=== PATIENT | female | born 1970 | race African-American/Black ===

== ENCOUNTER 2016-12-07 23:05 | Emergency (ER) | payer MEDICAID ==
[~2016-12-07 23:05] MED LIST: DIPH25CA83; RISP1
== END 2016-12-07 23:10 | disposition left against medical advice (07) ==
LOC: ER 23:10
DX: Z53.21 Procedure and treatment not carried out due to patient leaving prior to being seen by health care provider (principal)

== ENCOUNTER 2016-12-12 02:28 | Emergency (ER) | payer MEDICAID ==
[~2016-12-12] VITALS: Ht 167.6 cm; Wt 54.0 kg
[2016-12-12 03:23] LABS: BASOPHILS % 3.1 % (0.0-2.0); EOSINOPHILS % 3.2 % (0.0-5.0); HEMATOCRIT. 29.8 % (36.0-48.0); HEMOGLOBIN. 9.5 g/dL (12.0-16.0); LYMPHOCYTES % 35.9 % (20.0-50.0); MEAN CORPUSCULAR HEMOGLOBIN 25.6 pg (28.0-32.0); MEAN CORPUSCULAR HGB CONC 31.8 g/dL (31.0-37.0); MEAN CORPUSCULAR VOLUME 80.4 fL (81.0-99.0); MEAN PLATELET VOLUME 7.6 fl (7.4-10.4); MONOCYTES % 6.1 % (2.0-8.0); NEUTROPHILS % 51.7 % (40.0-76.0); PLATELET 326 x1000/uL (130-400); RED CELL DISTRIBUTION WIDTH 16.5 % (11.6-14.6); WHITE BLOOD COUNT 6.3 x1000/uL (4.5-11.0)
[2016-12-12 03:38] LABS: ALANINE AMINOTRANSFERASE 34 IU/L (13-61); ALBUMIN 3.1 g/dL (3.4-5.0); ANION GAP 9; CALCIUM 8.7 mg/dL (8.5-10.1); CARBON DIOXIDE 33 mEq/L (21-32); CHLORIDE 105 mEq/L (98-107); INDEX HEMOLYSI 1 (1-3); INDEX ICTERIC 1 (1-4); INDEX LIPEMIC 1 (1-3); UREA NITROGEN BLOOD 19 mg/dL (7-21); eGFR > 60 mL/min (>60)
[2016-12-12 08:40] VITALS: BP 143/83
== END 2016-12-12 10:06 | disposition home or self-care (01) ==
LOC: ER 02:30
DX: R05 Cough (principal); D64.9 Anemia, unspecified; F12.10 Cannabis abuse, uncomplicated
CPT/HCPCS: 36415; 80053; 83605; 85025; 99284

== ENCOUNTER 2016-12-15 03:43 | Emergency (ER) | payer MEDICAID ==
[~2016-12-15] VITALS: Ht 165.1 cm; Wt 50.0 kg
[2016-12-15 04:19] VITALS: BP 119/73
== END 2016-12-15 06:05 | disposition home or self-care (01) ==
LOC: ER 03:43
DX: Z00.00 Encounter for general adult medical examination without abnormal findings (principal); I10 Essential (primary) hypertension; F17.210 Nicotine dependence, cigarettes, uncomplicated
CPT/HCPCS: 99283

== ENCOUNTER 2016-12-25 04:05 | Emergency (ER) | payer MEDICAID ==
[~2016-12-25] VITALS: Ht 157.5 cm; Wt 50.0 kg
[2016-12-25 04:27] VITALS: BP 118/72
== END 2016-12-25 06:19 | disposition left against medical advice (07) ==
LOC: ER 04:08
DX: R07.89 Other chest pain (principal); R05 Cough; Z53.21 Procedure and treatment not carried out due to patient leaving prior to being seen by health care provider

== ENCOUNTER 2017-01-22 02:27 | Emergency (ER) | payer MEDICAID ==
[~2017-01-22] VITALS: Ht 165.1 cm; Wt 50.0 kg
[2017-01-22 03:48] LABS: BASOPHILS % 1.5 % (0.0-2.0); DIFFERENTIAL COMMENT 0; EOSINOPHILS % 2.7 % (0.0-5.0); HEMATOCRIT. 31.8 % (36.0-48.0); HEMOGLOBIN. 10.1 g/dL (12.0-16.0); MEAN CORPUSCULAR HEMOGLOBIN 25.3 pg (28.0-32.0); MEAN CORPUSCULAR HGB CONC 31.8 g/dL (31.0-37.0); MEAN CORPUSCULAR VOLUME 79.7 fL (81.0-99.0); MEAN PLATELET VOLUME 7.4 fl (7.4-10.4); NEUTROPHILS % 45.8 % (40.0-76.0); PLATELET 353 x1000/uL (130-400); RED BLOOD CELL COUNT 3.98 mill/uL (4.2-5.4); RED CELL DISTRIBUTION WIDTH 18.8 % (11.6-14.6); WHITE BLOOD COUNT 4.5 x1000/uL (4.5-11.0)
[2017-01-22 03:54] LABS: PARTIAL THROMBOPLASTIN TIME 26.2 sec (24.0-34.0); PROTHROMBIN TIME 10.5 sec
[2017-01-22 04:02] LABS: ALANINE AMINOTRANSFERASE 23 IU/L (13-61); ALBUMIN 2.9 g/dL (3.4-5.0); ANION GAP 13; CALCIUM 8.5 mg/dL (8.5-10.1); CARBON DIOXIDE 30 mEq/L (21-32); CHLORIDE 106 mEq/L (98-107); INDEX HEMOLYSI 1 (1-3); INDEX ICTERIC 1 (1-4); INDEX LIPEMIC 1 (1-3); LIPASE 366 IU/L (73-393); TROPONIN I < 0.02 ng/mL (0.00-0.04); UREA NITROGEN BLOOD 12 mg/dL (7-21); eGFR > 60 mL/min (>60)
[2017-01-22 05:30] VITALS: BP 110/55
[2017-01-22] MEDS ORDERED: ASPIRIN 81MG TABLET PO STA (05:44)
[2017-01-22 07:31] LABS: PARTIAL THROMBOPLASTIN TIME 26.4 sec (24.0-34.0); PROTHROMBIN TIME 10.5 sec
== END 2017-01-22 07:57 | disposition left against medical advice (07) ==
LOC: ER 02:28
DX: R07.89 Other chest pain (principal); R94.31 Abnormal electrocardiogram [ECG] [EKG]; E11.9 Type 2 diabetes mellitus without complications; I10 Essential (primary) hypertension; F20.9 Schizophrenia, unspecified
CPT/HCPCS: 36415; 71010; 80053; 83690; 84443; 84484; 85025; 85610; 85730; 93005; 99285

== ENCOUNTER 2017-01-26 04:01 | Emergency (ER) | payer MEDICAID ==
[~2017-01-26] VITALS: Ht 162.6 cm; Wt 50.0 kg
[2017-01-26 04:05] VITALS: BP 144/95
== END 2017-01-26 07:04 | disposition home or self-care (01) ==
LOC: ER 04:01
DX: G89.29 Other chronic pain (principal); M79.605 Pain in left leg; F31.9 Bipolar disorder, unspecified; F20.9 Schizophrenia, unspecified; F17.210 Nicotine dependence, cigarettes, uncomplicated; Z79.899 Other long term (current) drug therapy
CPT/HCPCS: 99283

== ENCOUNTER 2017-01-28 04:57 | Emergency (ER) | payer MEDICAID ==
[~2017-01-28] VITALS: Ht 170.2 cm; Wt 54.0 kg
[2017-01-28 07:20] VITALS: BP 120/70
== END 2017-01-28 08:30 | disposition home or self-care (01) ==
LOC: ER 04:59
DX: Z59.0 Homelessness (principal); F20.9 Schizophrenia, unspecified; Z79.899 Other long term (current) drug therapy
CPT/HCPCS: 99283

== ENCOUNTER 2017-03-04 15:02 | Emergency (ER) | payer MEDICAID ==
[~2017-03-04] VITALS: Ht 167.6 cm; Wt 65.0 kg
[2017-03-04 18:12] VITALS: BP 115/68
== END 2017-03-04 18:13 | disposition home or self-care (01) ==
LOC: ER 15:47
DX: J06.9 Acute upper respiratory infection, unspecified (principal); F17.200 Nicotine dependence, unspecified, uncomplicated
CPT/HCPCS: 99283

== ENCOUNTER 2017-03-13 04:53 | Emergency (ER) | payer MEDICAID ==
[~2017-03-13] VITALS: Ht 165.1 cm; Wt 71.0 kg
[2017-03-13] MEDS ORDERED: ONDANSETRON HCL 4MG/2ML VIAL IV STA (06:19)
[2017-03-13] MEDS ORDERED: SODIUM CHLORIDE 0.9% 1,000 ML IV ONE (06:19)
[2017-03-13 06:38] LABS: BASOPHILS % 1.3 % (0.0-2.0); EOSINOPHILS % 1.9 % (0.0-5.0); HEMATOCRIT. 32.1 % (36.0-48.0); HEMOGLOBIN. 10.3 g/dL (12.0-16.0); LYMPHOCYTES % 28.3 % (20.0-50.0); MEAN CORPUSCULAR VOLUME 81.3 fL (81.0-99.0); MEAN PLATELET VOLUME 7.2 fl (7.4-10.4); MONOCYTES % 7.9 % (2.0-8.0); NEUTROPHILS % 60.6 % (40.0-76.0); PLATELET 334 x1000/uL (130-400); RED BLOOD CELL COUNT 3.95 mill/uL (4.2-5.4); RED CELL DISTRIBUTION WIDTH 19.2 % (11.6-14.6)
[2017-03-13 06:54] LABS: CARBON DIOXIDE 30 mEq/L (21-32); CHLORIDE 107 mEq/L (98-107)
[2017-03-13 07:45] VITALS: BP 123/79
[2017-03-13 10:13] LABS: PROTHROMBIN TIME 10.1 sec
[2017-03-13 10:23] LABS: ETHANOL BLOOD < 10 mg/dL; TROPONIN I < 0.02 ng/mL (0.00-0.04)
== END 2017-03-13 10:20 | disposition left against medical advice (07) ==
LOC: ER 04:53
DX: K85.90 Acute pancreatitis without necrosis or infection, unspecified (principal); F20.9 Schizophrenia, unspecified; I10 Essential (primary) hypertension; R19.7 Diarrhea, unspecified; Z59.0 Homelessness
CPT/HCPCS: 36415; 80053; 83690; 84484; 85025; 85610; 87040; 96361; 96374; 99285; G0482; J2405; J7030; Z7610

== ENCOUNTER 2017-04-03 02:35 | Emergency (ER) | payer MEDICAID ==
[~2017-04-03] VITALS: Ht 160 cm; Wt 50.0 kg
[2017-04-03 02:42] VITALS: BP 138/82
== END 2017-04-03 03:04 | disposition left against medical advice (07) ==
LOC: ER 02:42
DX: Z53.21 Procedure and treatment not carried out due to patient leaving prior to being seen by health care provider (principal)

== ENCOUNTER 2017-06-21 04:56 | Emergency (ER) | payer MEDICAID ==
[~2017-06-21] VITALS: Ht 157.5 cm; Wt 55.0 kg
[2017-06-21 05:09] VITALS: BP 100/76
== END 2017-06-21 09:32 | disposition left against medical advice (07) ==
LOC: ER 05:05
DX: Z53.21 Procedure and treatment not carried out due to patient leaving prior to being seen by health care provider (principal)

== ENCOUNTER 2017-08-14 05:02 | Emergency (ER) | payer MEDICAID ==
[~2017-08-14] VITALS: Ht 162.6 cm; Wt 52.0 kg
[2017-08-14 08:42] LABS: BASOPHILS % 0.3 % (0.0-2.0); EOSINOPHILS % 3.8 % (0.0-5.0); HEMATOCRIT. 36.7 % (36.0-48.0); HEMOGLOBIN. 11.5 g/dL (12.0-16.0); LYMPHOCYTES % 32.3 % (20.0-50.0); MEAN CORPUSCULAR VOLUME 85.9 fL (81.0-99.0); MEAN PLATELET VOLUME 7.3 fl (7.4-10.4); MONOCYTES % 6.3 % (2.0-8.0); NEUTROPHILS % 57.3 % (40.0-76.0); PLATELET 348 x1000/uL (130-400); RED BLOOD CELL COUNT 4.27 mill/uL (4.2-5.4)
[2017-08-14 08:57] LABS: CARBON DIOXIDE 32 mEq/L (21-32); CHLORIDE 107 mEq/L (98-107); ETHANOL BLOOD < 10 mg/dL
[2017-08-14 08:59] LABS: CLARITY URINE CLEAR (CLEAR); COLOR URINE YELLOW (YELLOW); GLUCOSE URINE NEGATIVE (NEGATIVE); KETONES URINE NEGATIVE (NEGATIVE); LEUKOCYTE ESTERASE URINE NEGATIVE (NEGATIVE); NITRITE URINE NEGATIVE (NEGATIVE); OCCULT BLOOD URINE NEGATIVE (NEGATIVE); PH URINE 6.5 (4.5-8.0); PROTEIN URINE NEGATIVE (NEGATIVE); SPECIFIC GRAVITY URINE 1.024 (1.005-1.030)
[2017-08-14 09:24] LABS: *AMPHETAMINES SCREEN URINE NEGATIVE (NEGATIVE); *BARBITURATES SCREEN URINE NEGATIVE (NEGATIVE); *BENZODIAZEPINES SCREEN URINE NEGATIVE (NEGATIVE); CANNABINOID URINE SCREEN NEGATIVE (NEGATIVE); METHADONE URINE SCREEN NEGATIVE (NEGATIVE); OPIATES URINE SCREEN NEGATIVE (NEGATIVE); PHENCYCLIDINE URINE SCREEN NEGATIVE (NEGATIVE)
[2017-08-14 09:25] LABS: *COCAINE SCREEN URINE PRESUMTIVE POSITIVE (NEGATIVE)
[2017-08-14 09:30] VITALS: BP 128/80
== END 2017-08-14 10:35 | disposition left against medical advice (07) ==
LOC: ER 05:10
DX: R10.11 Right upper quadrant pain (principal)
CPT/HCPCS: 36415; 80048; 80076; 80305; 81003; 83690; 85025; 99284; G0482

== ENCOUNTER 2017-08-14 23:58 | Emergency (ER) | payer MEDICAID ==
[~2017-08-14] VITALS: Ht 157.5 cm; Wt 50.0 kg
[2017-08-15 06:19] VITALS: BP 122/54
== END 2017-08-15 06:49 | disposition home or self-care (01) ==
LOC: ER 23:58
DX: F20.9 Schizophrenia, unspecified (principal); I10 Essential (primary) hypertension; M19.90 Unspecified osteoarthritis, unspecified site; F17.210 Nicotine dependence, cigarettes, uncomplicated
CPT/HCPCS: 99284

== ENCOUNTER 2018-01-06 21:27 | Emergency (ER) | payer MEDICAID ==
[~2018-01-06] VITALS: Ht 157.5 cm; Wt 50.0 kg
[2018-01-07 06:12] VITALS: BP 141/79
== END 2018-01-07 06:23 | disposition home or self-care (01) ==
LOC: ER 21:27
DX: Z00.8 Encounter for other general examination (principal); F20.9 Schizophrenia, unspecified
CPT/HCPCS: 99283; Z7610

== ENCOUNTER 2018-01-14 23:12 | Emergency (ER) | payer MEDICAID ==
[~2018-01-14] VITALS: Ht 157.5 cm; Wt 54.0 kg
[2018-01-14] MEDS ORDERED: SODIUM CHLORIDE 0.9% 1,000 ML IV ONE (23:36)
[2018-01-15 00:37] LABS: BASOPHILS % 0.6 % (0.0-2.0); HEMATOCRIT. 35.3 % (36.0-48.0); HEMOGLOBIN. 11.6 g/dL (12.0-16.0); LYMPHOCYTES % 33.8 % (20.0-50.0); MEAN CORPUSCULAR HEMOGLOBIN 28.6 pg (28.0-32.0); MEAN CORPUSCULAR VOLUME 86.6 fL (81.0-99.0); MEAN PLATELET VOLUME 8.3 fl (7.4-10.4); NEUTROPHILS % 55.6 % (40.0-76.0); PLATELET 318 x1000/uL (130-400); RED BLOOD CELL COUNT 4.07 mill/uL (4.2-5.4); RED CELL DISTRIBUTION WIDTH 17.1 % (11.6-14.6)
[2018-01-15 00:42] LABS: CHLORIDE 106 mEq/L (98-107)
[2018-01-15 00:44] LABS: PROTHROMBIN TIME 10.3 sec (9.4-11.6)
[2018-01-15 03:42] LABS: CLARITY URINE CLEAR (CLEAR); COLOR URINE YELLOW (YELLOW); KETONES URINE NEGATIVE (NEGATIVE); LEUKOCYTE ESTERASE URINE NEGATIVE (NEGATIVE); NITRITE URINE NEGATIVE (NEGATIVE); OCCULT BLOOD URINE NEGATIVE (NEGATIVE); PROTEIN URINE NEGATIVE (NEGATIVE); SPECIFIC GRAVITY URINE 1.012 (1.005-1.030); UROBILINOGEN URINE 0.2 E.U./dL (0.2-1.0)
[2018-01-15] MEDS ORDERED: POTASSIUM CHLORIDE 20MEQ TABLET SR PO SCH (04:13)
[2018-01-15 06:26] VITALS: BP 140/92
== END 2018-01-15 06:39 | disposition home or self-care (01) ==
LOC: ER 01-15 00:21
DX: A08.4 Viral intestinal infection, unspecified (principal); R79.1 Abnormal coagulation profile
CPT/HCPCS: 36415; 80053; 81003; 81025; 83690; 85025; 85610; 96360; 96361; 99285; J7030; Z7610

== ENCOUNTER 2018-04-21 23:21 | Emergency (ER) | payer MEDICAID ==
[~2018-04-21] VITALS: Ht 160 cm; Wt 60.0 kg
[2018-04-21 23:25] VITALS: BP 126/84
== END 2018-04-22 00:20 | disposition left against medical advice (07) ==
LOC: ER 23:21
DX: R10.30 Lower abdominal pain, unspecified (principal); R11.0 Nausea; Z53.21 Procedure and treatment not carried out due to patient leaving prior to being seen by health care provider

== ENCOUNTER 2018-05-12 21:51 | Emergency (ER) | payer MEDICAID ==
[~2018-05-12] VITALS: Ht 170.2 cm; Wt 55.0 kg
[2018-05-12 22:15] VITALS: BP 117/76
== END 2018-05-13 02:42 | disposition left against medical advice (07) ==
LOC: ER 21:51
DX: R10.2 Pelvic and perineal pain (principal); R30.9 Painful micturition, unspecified; N39.0 Urinary tract infection, site not specified; F20.9 Schizophrenia, unspecified; Z53.21 Procedure and treatment not carried out due to patient leaving prior to being seen by health care provider

== ENCOUNTER 2018-05-20 02:49 | Emergency (ER) | payer MEDICAID ==
[~2018-05-20] VITALS: Ht 157.5 cm; Wt 45.0 kg
[2018-05-20 02:53] VITALS: BP 130/100
== END 2018-05-20 03:00 | disposition left against medical advice (07) ==
LOC: ER 02:49
DX: R07.0 Pain in throat (principal); Z53.21 Procedure and treatment not carried out due to patient leaving prior to being seen by health care provider

== ENCOUNTER 2018-10-03 18:39 | Emergency (ER) | payer MEDICAID ==
[~2018-10-03] VITALS: Ht 165.1 cm; Wt 54.0 kg
[2018-10-04] MEDS ORDERED: SODIUM CHLORIDE 0.9% 1,000 ML IV ONE (01:55)
[2018-10-04 02:02] LABS: BASOPHILS % 0.2 % (0.0-2.0); HEMATOCRIT. 38.8 % (36.0-48.0); HEMOGLOBIN. 12.5 g/dL (12.0-16.0); MEAN CORPUSCULAR HEMOGLOBIN 28.3 pg (28.0-32.0); MEAN CORPUSCULAR VOLUME 87.8 fL (81.0-99.0); MEAN PLATELET VOLUME 7.9 fl (7.4-10.4); MONOCYTES % 6.7 % (2.0-8.0); NEUTROPHILS % 58.1 % (40.0-76.0); PLATELET 384 x1000/uL (130-400); RED BLOOD CELL COUNT 4.42 mill/uL (4.2-5.4); RED CELL DISTRIBUTION WIDTH 15.8 % (11.6-14.6)
[2018-10-04 02:10] LABS: CHLORIDE 107 mEq/L (98-107); PROTHROMBIN TIME 9.8 sec (9.1-11.1)
[2018-10-04 02:11] VITALS: BP 128/84
== END 2018-10-04 04:37 | disposition home or self-care (01) ==
LOC: ER 18:39
DX: R19.7 Diarrhea, unspecified (principal); J45.909 Unspecified asthma, uncomplicated; I10 Essential (primary) hypertension
CPT/HCPCS: 36415; 80053; 83690; 85025; 85610; 99283; J7030

== ENCOUNTER 2018-10-04 09:20 | Emergency (ER) | payer MEDICAID ==
[~2018-10-04] VITALS: Ht 167.6 cm; Wt 50.0 kg
[2018-10-04 09:41] VITALS: BP 132/90
== END 2018-10-04 14:30 | disposition home or self-care (01) ==
LOC: ER 09:20
DX: R19.7 Diarrhea, unspecified (principal); Z59.0 Homelessness
CPT/HCPCS: 99281

== ENCOUNTER 2019-06-16 18:11 | Emergency (ER) | payer MEDICAID ==
[~2019-06-16] VITALS: Ht 160 cm; Wt 50.0 kg
[2019-06-16] MEDS ORDERED: KETOROLAC 15MG/ML VIAL IM ONE (19:30)
[2019-06-16 20:47] VITALS: BP 100/80
== END 2019-06-16 21:05 | disposition home or self-care (01) ==
LOC: ER 18:11
DX: M25.572 Pain in left ankle and joints of left foot (principal); M79.672 Pain in left foot
CPT/HCPCS: 99283; J1885

== ENCOUNTER 2019-07-04 11:50 | Emergency (ER) | payer MEDICAID ==
[~2019-07-04] VITALS: Ht 167.6 cm; Wt 72.0 kg
[2019-07-04 11:54] VITALS: BP 132/82
[2019-07-04] MEDS ORDERED: VISCOUS LIDOCAINE 2% 15 ML UDC MM PRN (12:45)
[2019-07-04 15:02] LABS: CHLORIDE 109 mEq/L (98-107)
[2019-07-04 15:03] LABS: BASOPHILS % 1.3 % (0.0-2.0); EOSINOPHILS % 3.3 % (0.0-5.0); HEMATOCRIT. 37.1 % (36.0-48.0); LYMPHOCYTES % 37.3 % (20.0-50.0); MEAN CORPUSCULAR HEMOGLOBIN 28.3 pg (28.0-32.0); MEAN CORPUSCULAR VOLUME 87.8 fL (81.0-99.0); MEAN PLATELET VOLUME 8.4 fl (7.4-10.4); NEUTROPHILS % 50.1 % (40.0-76.0); PLATELET 345 x1000/uL (130-400); RED BLOOD CELL COUNT 4.23 mill/uL (4.2-5.4); RED CELL DISTRIBUTION WIDTH 16.7 % (11.6-14.6)
[2019-07-04 15:28] LABS: CLARITY URINE CLEAR (CLEAR); COLOR URINE YELLOW (YELLOW); KETONES URINE NEGATIVE (NEGATIVE); LEUKOCYTE ESTERASE URINE NEGATIVE (NEGATIVE); NITRITE URINE NEGATIVE (NEGATIVE); OCCULT BLOOD URINE NEGATIVE (NEGATIVE); PROTEIN URINE NEGATIVE (NEGATIVE); SPECIFIC GRAVITY URINE 1.024 (1.005-1.030)
[2019-07-04 15:51] LABS: CANNABINOID URINE SCREEN NEGATIVE (NEGATIVE); OPIATES URINE SCREEN NEGATIVE (NEGATIVE); PHENCYCLIDINE URINE SCREEN NEGATIVE (NEGATIVE)
[2019-07-04 15:52] LABS: *COCAINE SCREEN URINE PRESUMTIVE POSITIVE (NEGATIVE); METHADONE URINE SCREEN NEGATIVE (NEGATIVE)
[2019-07-04 15:56] LABS: *BENZODIAZEPINES SCREEN URINE NEGATIVE (NEGATIVE)
[2019-07-04 16:00] LABS: *AMPHETAMINES SCREEN URINE NEGATIVE (NEGATIVE)
[2019-07-04 16:01] LABS: *BARBITURATES SCREEN URINE NEGATIVE (NEGATIVE)
== END 2019-07-04 16:14 | disposition left against medical advice (07) ==
LOC: ER 11:50
DX: J02.9 Acute pharyngitis, unspecified (principal); J45.909 Unspecified asthma, uncomplicated; I10 Essential (primary) hypertension; F19.10 Other psychoactive substance abuse, uncomplicated; Z59.0 Homelessness
CPT/HCPCS: 36415; 80048; 80305; 81003; 99283

== ENCOUNTER 2019-07-25 01:02 | Emergency (ER) | payer MEDICAID ==
[~2019-07-25] VITALS: Ht 162.6 cm; Wt 56.0 kg
[2019-07-25 03:09] VITALS: BP 116/92
== END 2019-07-25 04:56 | disposition left against medical advice (07) ==
LOC: ER 01:02
DX: M79.10 Myalgia, unspecified site (principal); R45.1 Restlessness and agitation; J45.909 Unspecified asthma, uncomplicated; I10 Essential (primary) hypertension; F17.200 Nicotine dependence, unspecified, uncomplicated
CPT/HCPCS: 99283; Z7610

== ENCOUNTER 2019-10-28 23:51 | Emergency (ER) | payer MEDICAID ==
[~2019-10-28] VITALS: Ht 162.6 cm; Wt 56.0 kg
[~2019-10-28 23:51] MED LIST changes: -DIPH25CA83; +DIPH25CA83 PO; -RISP1; +RISP1 PO
[2019-10-29 13:00] VITALS: BP 131/87
== END 2019-10-29 15:34 | disposition home or self-care (01) ==
LOC: ER 23:51
DX: Z59.0 Homelessness (principal); J44.9 Chronic obstructive pulmonary disease, unspecified; E11.9 Type 2 diabetes mellitus without complications; I10 Essential (primary) hypertension; Z98.890 Other specified postprocedural states
CPT/HCPCS: 99283

== ENCOUNTER 2019-10-30 00:16 | Emergency (ER) | payer MEDICAID ==
[~2019-10-30] VITALS: Ht 157.5 cm; Wt 50.0 kg
[2019-10-30 00:38] VITALS: BP 143/93
== END 2019-10-30 02:49 | disposition left against medical advice (07) ==
LOC: ER 01:21
DX: Z53.21 Procedure and treatment not carried out due to patient leaving prior to being seen by health care provider (principal)

== ENCOUNTER 2019-11-04 02:32 | Emergency (ER) | payer MEDICAID ==
[~2019-11-04] VITALS: Ht 165.1 cm; Wt 54.0 kg
[2019-11-04 02:34] VITALS: BP 143/71
== END 2019-11-04 10:29 | disposition left against medical advice (07) ==
LOC: ER 02:32
DX: Z53.21 Procedure and treatment not carried out due to patient leaving prior to being seen by health care provider (principal)

== ENCOUNTER 2019-11-04 12:35 | Emergency (ER) | payer MEDICAID ==
[~2019-11-04] VITALS: Ht 165.1 cm; Wt 50.0 kg
[2019-11-04 15:28] VITALS: BP 113/49
== END 2019-11-04 18:44 | disposition left against medical advice (07) ==
LOC: ER 12:35
DX: Z53.21 Procedure and treatment not carried out due to patient leaving prior to being seen by health care provider (principal)

== ENCOUNTER 2019-12-29 06:05 | Emergency (ER) | payer MEDICAID ==
[~2019-12-29] VITALS: Ht 162.6 cm; Wt 53.4 kg
[2019-12-29 06:12] VITALS: BP 132/51
== END 2019-12-29 06:49 | disposition home or self-care (01) ==
LOC: ER 06:33
DX: R30.0 Dysuria (principal); I10 Essential (primary) hypertension; Z59.0 Homelessness
CPT/HCPCS: 99281

== ENCOUNTER 2020-04-20 20:32 | Emergency (ER) | payer MEDICAID ==
[~2020-04-20] VITALS: Ht 160 cm; Wt 50.0 kg
[2020-04-20 20:35] VITALS: BP 137/88
[2020-04-20] MEDS ORDERED: ACETAMINOPHEN 650MG/20.3ML UDC PO ONE (20:45)
== END 2020-04-20 20:53 | disposition left against medical advice (07) ==
LOC: ER 20:32
DX: S70.311A Abrasion, right thigh, initial encounter (principal); F20.9 Schizophrenia, unspecified; M19.90 Unspecified osteoarthritis, unspecified site; Z59.0 Homelessness; W19.XXXA Unspecified fall, initial encounter; Y93.89 Activity, other specified; Y92.89 Other specified places as the place of occurrence of the external cause
CPT/HCPCS: 99283

== ENCOUNTER 2020-08-16 07:02 | Emergency (ER) | payer MEDICAID ==
[~2020-08-16] VITALS: Ht 165.1 cm; Wt 55.0 kg
[2020-08-16 07:19] VITALS: BP 124/73
[2020-08-16] MEDS ORDERED: ACETAMINOPHEN 325MG TABLET PO ONE (07:45)
== END 2020-08-16 07:50 | disposition home or self-care (01) ==
LOC: ER 07:02
DX: M25.562 Pain in left knee (principal); Z59.0 Homelessness; Z86.59 Personal history of other mental and behavioral disorders
CPT/HCPCS: 99283

== ENCOUNTER 2020-10-24 13:05 | Emergency (ER) | payer MEDICAID ==
[~2020-10-24] VITALS: Ht 160 cm; Wt 64.0 kg
[2020-10-24] MEDS ORDERED: ONDANSETRON 4MG ODT PO ONE (14:30)
[2020-10-24] MEDS ORDERED: DEXT 5%/0.9% NACL 1,000 ML IV ONE (19:00)
[2020-10-24 20:07] LABS: HEMATOCRIT. 37.5 % (36.0-48.0); HEMOGLOBIN. 12.2 g/dL (12.0-16.0); MEAN CORPUSCULAR HEMOGLOBIN 27.9 pg (28.0-32.0); MEAN CORPUSCULAR VOLUME 86.1 fL (81.0-99.0); MEAN PLATELET VOLUME 7.8 fl (7.4-10.4); PLATELET 304 x1000/uL (130-400); RED BLOOD CELL COUNT 4.36 mill/uL (4.2-5.4); RED CELL DISTRIBUTION WIDTH 16.6 % (11.6-14.6)
[2020-10-24 20:13] LABS: PROTHROMBIN TIME 10.3 sec (9.6-11.0)
[2020-10-24 20:17] LABS: CHLORIDE 107 mEq/L (98-107)
[2020-10-24 20:39] LABS: PLATELET ESTIMATE NORMAL
[2020-10-24 21:36] LABS: CLARITY URINE CLEAR (CLEAR); COLOR URINE YELLOW (YELLOW); KETONES URINE NEGATIVE (NEGATIVE); LEUKOCYTE ESTERASE URINE NEGATIVE (NEGATIVE); NITRITE URINE NEGATIVE (NEGATIVE); OCCULT BLOOD URINE NEGATIVE (NEGATIVE); PH URINE 8.5 (4.5-8.0); PROTEIN URINE NEGATIVE (NEGATIVE); SPECIFIC GRAVITY URINE 1.019 (1.005-1.030)
[2020-10-24 22:54] VITALS: BP 125/68
== END 2020-10-24 23:00 | disposition home or self-care (01) ==
LOC: ER 13:13
DX: E86.0 Dehydration (principal); K52.9 Noninfective gastroenteritis and colitis, unspecified; F20.9 Schizophrenia, unspecified; Z59.0 Homelessness; Z20.828 Contact with and (suspected) exposure to other viral communicable diseases
CPT/HCPCS: 80053; 81003; 83690; 84484; 85025; 85610; 93005; 96365; 96366; 99284; J7042

== ENCOUNTER 2020-11-09 20:02 | Emergency (ER) | payer MEDICAID ==
[~2020-11-09] VITALS: Ht 162.6 cm; Wt 61.0 kg
[2020-11-09 20:06] VITALS: BP 148/77
[2020-11-09] MEDS ORDERED: SODIUM CHLORIDE 0.9% 1,000 ML IV ONE (21:00)
[2020-11-10] MEDS ORDERED: TOPUD MT (11:50)
[2020-11-10] MEDS ORDERED: AMOX-424 MT (11:50)
== END 2020-11-09 21:48 | disposition left against medical advice (07) ==
LOC: ER 20:02
DX: S05.8X2A Other injuries of left eye and orbit, initial encounter (principal); F20.9 Schizophrenia, unspecified; M19.90 Unspecified osteoarthritis, unspecified site; W01.0XXA Fall on same level from slipping, tripping and stumbling without subsequent striking against object, initial encounter; Y93.89 Activity, other specified; Y92.488 Other paved roadways as the place of occurrence of the external cause
CPT/HCPCS: 99283; J7030

== ENCOUNTER 2020-11-10 07:43 | Inpatient (IN) | payer MEDICAID ==
[~2020-11-10] VITALS: Ht 162.6 cm; Wt 61.0 kg
[2020-11-10] MEDS ORDERED: ACETAMINOPHEN 325MG TABLET PO ONE (09:30)
[2020-11-10] MEDS ORDERED: TOPUD MT (11:50)
[2020-11-10] MEDS ORDERED: AMOX-424 MT (11:50)
[2020-11-10 16:32] LABS: BASOPHILS % 0.1 % (0.0-2.0); EOSINOPHILS % 1.8 % (0.0-5.0); HEMATOCRIT. 37.5 % (36.0-48.0); HEMOGLOBIN. 12.1 g/dL (12.0-16.0); LYMPHOCYTES % 34.1 % (20.0-50.0); MEAN CORPUSCULAR HEMOGLOBIN 27.9 pg (28.0-32.0); MEAN CORPUSCULAR VOLUME 86.2 fL (81.0-99.0); MEAN PLATELET VOLUME 7.6 fl (7.4-10.4); MONOCYTES % 7.9 % (2.0-8.0); NEUTROPHILS % 56.1 % (40.0-76.0); PLATELET 481 x1000/uL (130-400); RED BLOOD CELL COUNT 4.35 mill/uL (4.2-5.4); RED CELL DISTRIBUTION WIDTH 16.6 % (11.6-14.6)
[2020-11-10 16:36] LABS: CHLORIDE 107 mEq/L (98-107)
[2020-11-10] MEDS ORDERED: MORPHINE SULFATE 2 MG/ML CPJ (NOT FOR IM USE) IV PRN (23:00)
[2020-11-10] MEDS ORDERED: ONDANSETRON HCL 4MG/2ML INJ IV PRN (23:00)
[2020-11-10] MEDS ORDERED: LORAZEPAM 2MG/ML CPJ IV PRN (23:00)
[2020-11-10] MEDS ORDERED: DIPHENHYDRAMINE 50MG/ML VIAL IV PRN (23:00)
[2020-11-10] MEDS ORDERED: HYDRALAZINE 20MG/ML VIAL IV PRN (23:00)
[2020-11-10] MEDS ORDERED: HYDROCODONE/ACETAMINOPHEN 5/325MG TABLET PO PRN (23:00)
[2020-11-10] MEDS ORDERED: MAGNESIUM/ALUMINUM HYDROXIDE/SIMETHICONE 30ML UDC PO PRN (23:00)
[2020-11-10] MEDS ORDERED: ACETAMINOPHEN 325MG TABLET PO PRN (23:00)
[2020-11-10] MEDS ORDERED: GUAIFENESIN 200MG/10ML SUGAR FREE UDC PO PRN (23:00)
[2020-11-10] MEDS ORDERED: DOCUSATE SODIUM 100MG CAPSULE PO PRN (23:00)
[2020-11-10] MEDS ORDERED: CLONIDINE 0.1MG TABLET PO PRN (23:00)
[2020-11-10] MEDS ORDERED: IPRATROPIUM/ALBUTEROL 0.5-3(2.5)MG/3ML NEB HHN PRN (23:00)
[2020-11-11] MEDS ORDERED: ENOXAPARIN 40MG/0.4ML SYR SUBCUT SCH (01:00)
[2020-11-11 05:20] LABS: BASOPHILS % 0.6 % (0.0-2.0); EOSINOPHILS % 3.2 % (0.0-5.0); HEMATOCRIT. 38.7 % (36.0-48.0); HEMOGLOBIN. 12.2 g/dL (12.0-16.0); LYMPHOCYTES % 42.3 % (20.0-50.0); MEAN CORPUSCULAR HEMOGLOBIN 27.2 pg (28.0-32.0); MEAN CORPUSCULAR VOLUME 86.2 fL (81.0-99.0); MEAN PLATELET VOLUME 7.7 fl (7.4-10.4); MONOCYTES % 6.8 % (2.0-8.0); NEUTROPHILS % 47.1 % (40.0-76.0); PLATELET 459 x1000/uL (130-400); RED BLOOD CELL COUNT 4.48 mill/uL (4.2-5.4); RED CELL DISTRIBUTION WIDTH 16.6 % (11.6-14.6)
[2020-11-11 05:32] LABS: CHLORIDE 107 mEq/L (98-107)
[2020-11-11] MEDS: SODIUM CHLORIDE 0.9% INJ 3ML FLUSH IVF SCH ×2 (07:18→14:00)
[2020-11-11] MEDS ORDERED: HYDRALAZINE 10 MG in SODIUM CHLORIDE 0.9% 49.5 ML IV PRN (10:15)
[2020-11-11 10:50] VITALS: BP 128/89
== END 2020-11-11 16:35 | disposition home or self-care (01) | DRG 82 ==
LOC: ER 07:43 → MICUSO 14:57 → 6EST 11-11 09:57
PROVIDERS: ADMIT Internal Medicine; ATTEND Internal Medicine
DX: H02.846 Edema of left eye, unspecified eyelid (principal); S00.83XA Contusion of other part of head, initial encounter; D72.819 Decreased white blood cell count, unspecified; E46 Unspecified protein-calorie malnutrition; F20.9 Schizophrenia, unspecified; Y93.01 Activity, walking, marching and hiking; R26.81 Unsteadiness on feet; I10 Essential (primary) hypertension; K02.9 Dental caries, unspecified; M19.90 Unspecified osteoarthritis, unspecified site; W01.0XXA Fall on same level from slipping, tripping and stumbling without subsequent striking against object, initial encounter; Y92.89 Other specified places as the place of occurrence of the external cause; Y92.480 Sidewalk as the place of occurrence of the external cause; Z79.1 Long term (current) use of non-steroidal anti-inflammatories (NSAID); Z79.899 Other long term (current) drug therapy; Z68.23 Body mass index [BMI] 23.0-23.9, adult; E87.1 Hypo-osmolality and hyponatremia; E44.0 Moderate protein-calorie malnutrition
CPT/HCPCS: 36415; 70486; 80053; 85025; 93005; 96372; 99285; J1650

== ENCOUNTER 2021-01-22 05:20 | Emergency (ER) | payer MEDICAID ==
[~2021-01-22] VITALS: Ht 157.5 cm; Wt 50.0 kg
[~2021-01-22 05:20] MED LIST changes: +AMOX-424 MT; +TOPUD MT
[2021-01-22 05:23] VITALS: BP 103/66
[2021-01-22] MEDS ORDERED: ACETAMINOPHEN 325MG TABLET PO ONE (05:45)
== END 2021-01-22 06:03 | disposition left against medical advice (07) ==
LOC: ER 05:20
DX: M25.562 Pain in left knee (principal); M25.572 Pain in left ankle and joints of left foot; F20.9 Schizophrenia, unspecified; M19.90 Unspecified osteoarthritis, unspecified site; W01.0XXA Fall on same level from slipping, tripping and stumbling without subsequent striking against object, initial encounter; Y93.9 Activity, unspecified; Y92.9 Unspecified place or not applicable
CPT/HCPCS: 99283

== ENCOUNTER 2021-02-16 17:01 | Emergency (ER) | payer MEDICAID ==
[~2021-02-16] VITALS: Ht 165.1 cm; Wt 59.0 kg
[2021-02-16 17:27] VITALS: BP 142/78
[2021-02-16] MEDS ORDERED: ACETAMINOPHEN 325MG TABLET PO ONE (17:30)
== END 2021-02-16 19:52 | disposition home or self-care (01) ==
LOC: ER 17:01
DX: M79.18 Myalgia, other site (principal); M25.562 Pain in left knee; I10 Essential (primary) hypertension; F20.9 Schizophrenia, unspecified; Z79.899 Other long term (current) drug therapy
CPT/HCPCS: 99283

== ENCOUNTER 2021-05-11 00:22 | Emergency (ER) | payer MEDICAID ==
[~2021-05-11] VITALS: Ht 165.1 cm; Wt 64.0 kg
[2021-05-11 05:50] LABS: BASOPHILS % 1.1 % (0.0-2.0); EOSINOPHILS % 3.1 % (0.0-5.0); HEMATOCRIT. 34.2 % (36.0-48.0); HEMOGLOBIN. 11.4 g/dL (12.0-16.0); LYMPHOCYTES % 38.8 % (20.0-50.0); MEAN CORPUSCULAR HEMOGLOBIN 28.9 pg (28.0-32.0); MEAN CORPUSCULAR VOLUME 86.4 fL (81.0-99.0); MEAN PLATELET VOLUME 7.7 fl (7.4-10.4); MONOCYTES % 8.7 % (2.0-8.0); NEUTROPHILS % 48.3 % (40.0-76.0); PLATELET 268 x1000/uL (130-400); RED BLOOD CELL COUNT 3.96 mill/uL (4.2-5.4); RED CELL DISTRIBUTION WIDTH 16.8 % (11.6-14.6)
[2021-05-11 05:56] LABS: CHLORIDE 108 mEq/L (98-107)
[2021-05-11 07:23] VITALS: BP 105/66
== END 2021-05-11 07:24 | disposition home or self-care (01) ==
LOC: ER 00:22
DX: R19.7 Diarrhea, unspecified (principal); F17.290 Nicotine dependence, other tobacco product, uncomplicated; Z79.899 Other long term (current) drug therapy
CPT/HCPCS: 36415; 80053; 85025; 99283

== ENCOUNTER 2021-12-03 04:28 | Emergency (ER) | payer MEDICAID ==
[~2021-12-03] VITALS: Ht 157.5 cm; Wt 52.0 kg
[2021-12-03 07:18] LABS: CHLORIDE 103 mEq/L (98-107)
[2021-12-03 07:38] LABS: BASOPHILS % 0.8 % (0.0-2.0); EOSINOPHILS % 1.4 % (0.0-5.0); HEMOGLOBIN. 11.9 g/dL (12.0-16.0); LYMPHOCYTES % 26.5 % (20.0-50.0); MEAN CORPUSCULAR HEMOGLOBIN 28.3 pg (28.0-32.0); MEAN CORPUSCULAR VOLUME 85.8 fL (81.0-99.0); MONOCYTES % 6.1 % (2.0-8.0); NEUTROPHILS % 65.2 % (40.0-76.0); PLATELET 319 x1000/uL (130-400); RED CELL DISTRIBUTION WIDTH 15.3 % (11.6-14.6)
[2021-12-03 11:39] VITALS: BP 135/60
== END 2021-12-03 12:12 | disposition home or self-care (01) ==
LOC: EDUNIT# 04:28 → ER 07:00
DX: R10.84 Generalized abdominal pain (principal); Z59.00 Homelessness unspecified
CPT/HCPCS: 36415; 80053; 85025; 99283

== ENCOUNTER 2022-03-01 15:45 | Emergency (ER) | payer MEDICAID ==
[~2022-03-01] VITALS: Ht 177.8 cm; Wt 80.0 kg
[2022-03-01 15:57] VITALS: BP 128/78
== END 2022-03-01 19:40 | disposition left against medical advice (07) ==
LOC: ER 15:45
DX: R10.2 Pelvic and perineal pain (principal); M25.551 Pain in right hip; M25.552 Pain in left hip; I10 Essential (primary) hypertension; Z79.899 Other long term (current) drug therapy
CPT/HCPCS: 99283

== ENCOUNTER 2022-06-29 14:52 | Emergency (ER) | payer MEDICAID ==
[~2022-06-29] VITALS: Ht 165.1 cm; Wt 54.0 kg
[2022-06-29 14:55] VITALS: BP 106/72
[2022-06-29] MEDS ORDERED: ACETAMINOPHEN 325MG TABLET PO ONE (15:15)
== END 2022-06-29 15:32 | disposition left against medical advice (07) ==
LOC: ER 14:52
DX: M79.672 Pain in left foot (principal); M79.671 Pain in right foot; I10 Essential (primary) hypertension; Z59.00 Homelessness unspecified
CPT/HCPCS: 99283

== ENCOUNTER 2023-08-13 10:59 | Emergency (ER) | payer MEDICAID, OTHER ==
[~2023-08-13] VITALS: Ht 162.6 cm; Wt 55.0 kg
[2023-08-13 11:06] VITALS: BP 128/80; PULSE 76; RESP 16; TEMP 98.3; O2SAT 97
== END 2023-08-13 11:39 | disposition left against medical advice (07) ==
LOC: ER 10:59
DX: R10.9 Unspecified abdominal pain (principal); Z53.21 Procedure and treatment not carried out due to patient leaving prior to being seen by health care provider
CPT/HCPCS: 99281

== ENCOUNTER 2023-08-13 16:01 | Emergency (ER) | payer MEDICAID, OTHER ==
[~2023-08-13] VITALS: Ht 165.1 cm; Wt 68.0 kg
[2023-08-13 16:36] VITALS: BP 141/81; PULSE 92; RESP 16; TEMP 97.7; O2SAT 97
== END 2023-08-13 17:11 | disposition left against medical advice (07) ==
LOC: ER 16:01
DX: R10.9 Unspecified abdominal pain (principal); Z53.21 Procedure and treatment not carried out due to patient leaving prior to being seen by health care provider
CPT/HCPCS: 99281

== ENCOUNTER 2023-09-19 02:01 | Emergency (ER) | payer OTHER ==
[~2023-09-19] VITALS: Ht 162.6 cm; Wt 54.0 kg
[2023-09-19 03:12] LABS: BASOPHILS % 1.1 % (0.0-2.0); DIFFERENTIAL COMMENT 0; EOSINOPHILS % 3.9 % (0.0-5.0); HEMATOCRIT. 37.4 % (36.0-48.0); HEMOGLOBIN. 12.1 g/dL (12.0-16.0); LYMPHOCYTES % 35.7 % (20.0-50.0); MEAN CORPUSCULAR HEMOGLOBIN 28.8 pg (28.0-32.0); MEAN CORPUSCULAR HGB CONC 32.3 g/dL (31.0-37.0); MEAN CORPUSCULAR VOLUME 89.2 fL (81.0-99.0); MEAN PLATELET VOLUME 7.9 fl (7.4-10.4); NEUTROPHILS % 50.3 % (40.0-76.0); PLATELET 406 x1000/uL (130-400); RED CELL DISTRIBUTION WIDTH 16.4 % (11.6-14.6); WHITE BLOOD COUNT 5.5 x1000/uL (4.5-11.0)
[2023-09-19 04:49] LABS: SODIUM 143 mEq/L (136-145)
[2023-09-19 04:50] LABS: CARBON DIOXIDE 33 mEq/L (21-32); GLUCOSE 72 mg/dL (70-105); POTASSIUM 3.9 mEq/L (3.5-5.1)
[2023-09-19 04:51] LABS: ALBUMIN 3.7 g/dL (3.2-4.8); CALCIUM 8.9 mg/dL (8.7-10.4); CREATININE 0.6 mg/dL (0.6-1.0); PROTEIN TOTAL 6.3 g/dL (6.0-8.3); UREA NITROGEN BLOOD 16 mg/dL (9-23)
[2023-09-19 04:52] LABS: ALANINE AMINOTRANSFERASE 8 IU/L (10-49); ASPARTATE AMINOTRANSFERASE 17 IU/L (<34); BILIRUBIN TOTAL 0.3 mg/dL (0.1-1.0)
[2023-09-19 04:53] LABS: ETHANOL BLOOD < 10 mg/dL (<10)
[2023-09-19 05:50] LABS: ACETAMINOPHEN < 2 ug/mL (10-30); CHLORIDE 108 mEq/L (98-107)
[2023-09-19 15:46] VITALS: BP 128/84; PULSE 83; RESP 18; TEMP 98.1
== END 2023-09-19 15:51 | disposition home or self-care (01) ==
LOC: ER 02:07
DX: R44.0 Auditory hallucinations (principal)
CPT/HCPCS: 36415; 80053; 80307; 80320; 80329; 85025; 99285; G0480

== ENCOUNTER 2023-10-12 13:07 | Emergency (ER) | payer OTHER ==
[~2023-10-12] VITALS: Ht 165.1 cm; Wt 59.0 kg
[2023-10-12 13:16] VITALS: BP 134/88; PULSE 76; RESP 18; TEMP 98.4; O2SAT 100
== END 2023-10-13 01:24 | disposition left against medical advice (07) ==
LOC: ER 13:07
DX: R33.9 Retention of urine, unspecified (principal)
CPT/HCPCS: 99283

== ENCOUNTER 2023-11-02 20:47 | Emergency (ER) | payer MEDICAID, OTHER ==
[~2023-11-02] VITALS: Ht 157.5 cm; Wt 55.0 kg
[2023-11-02 21:01] VITALS: TEMP 98.5; O2SAT 97
[2023-11-02] MEDS: ONDANSETRON 4MG ODT PO ONE (22:44)
[2023-11-02] MEDS: ACETAMINOPHEN 325MG TABLET PO STA (22:44)
[2023-11-02 23:28] VITALS: BP 125/62; PULSE 90; RESP 14
== END 2023-11-03 07:15 | disposition home or self-care (01) ==
LOC: ER 20:47
DX: R41.82 Altered mental status, unspecified (principal); R10.84 Generalized abdominal pain
CPT/HCPCS: 99283; Q0162

== ENCOUNTER 2024-07-28 00:41 | Emergency (ER) | payer MEDICAID ==
[~2024-07-28] VITALS: Ht 162.6 cm; Wt 64.0 kg
[2024-07-28 00:45] VITALS: BP 142/86; PULSE 86; RESP 18; TEMP 98.2; O2SAT 99
[2024-07-28] MEDS ORDERED: TOPUD MT (08:43)
== END 2024-07-28 01:23 | disposition home or self-care (01) ==
LOC: ER 00:41
DX: R19.7 Diarrhea, unspecified (principal); Z59.00 Homelessness unspecified; Z00.00 Encounter for general adult medical examination without abnormal findings
CPT/HCPCS: 99283

== ENCOUNTER 2024-07-28 05:19 | Emergency (ER) | payer MEDICAID ==
[~2024-07-28] VITALS: Ht 162.6 cm; Wt 55.0 kg
[2024-07-28 05:26] VITALS: O2SAT 97
[2024-07-28] MEDS ORDERED: ACETAMINOPHEN 325MG TABLET PO ONE (06:30)
[2024-07-28 08:18] VITALS: TEMP 97.5
[2024-07-28] MEDS: ACETAMINOPHEN 500MG TABLET PO NR (08:18)
[2024-07-28] MEDS ORDERED: TOPUD MT (08:43)
[2024-07-28 10:30] VITALS: BP 140/74; PULSE 80; RESP 16; O2SAT 99
== END 2024-07-28 11:13 | disposition home or self-care (01) ==
LOC: ER 05:28
DX: G89.29 Other chronic pain (principal); M79.605 Pain in left leg; M79.604 Pain in right leg
CPT/HCPCS: 99282

== ENCOUNTER 2024-08-14 12:18 | Emergency (ER) | payer MEDICAID ==
[~2024-08-14] VITALS: Ht 165.1 cm; Wt 60.0 kg
[2024-08-14 12:21] VITALS: BP 96/66; PULSE 92; RESP 16; TEMP 98.4; O2SAT 99
[2024-08-14] MEDS ORDERED: LOPE2CAP MT (14:04)
== END 2024-08-14 14:42 | disposition home or self-care (01) ==
LOC: ER 12:18
DX: R53.1 Weakness (principal); R19.7 Diarrhea, unspecified; F19.90 Other psychoactive substance use, unspecified, uncomplicated; Z79.899 Other long term (current) drug therapy
CPT/HCPCS: 71045; 99283

== ENCOUNTER 2024-08-20 21:39 | Emergency (ER) | payer MEDICAID ==
[~2024-08-20] VITALS: Ht 165.1 cm; Wt 57.0 kg
[~2024-08-20 21:39] MED LIST changes: +LOPE2CAP MT
[2024-08-20 21:53] VITALS: BP 146/76; PULSE 78; RESP 18; TEMP 97; O2SAT 99
[2024-08-20] MEDS ORDERED: ONDANSETRON 4MG ODT PO STA (22:09)
== END 2024-08-21 02:20 | disposition home or self-care (01) ==
LOC: ER 21:39
DX: R11.2 Nausea with vomiting, unspecified (principal); I10 Essential (primary) hypertension; Z79.899 Other long term (current) drug therapy
CPT/HCPCS: 99283; Z7610

== ENCOUNTER 2024-08-21 06:44 | Emergency (ER) | payer MEDICAID ==
[~2024-08-21] VITALS: Ht 157.5 cm; Wt 50.2 kg
[2024-08-21 06:51] VITALS: BP 131/90; PULSE 91; RESP 19; TEMP 98.7; O2SAT 100
== END 2024-08-21 13:10 | disposition home or self-care (01) ==
LOC: ER 06:57
DX: Z00.00 Encounter for general adult medical examination without abnormal findings (principal); I10 Essential (primary) hypertension; Z59.00 Homelessness unspecified; Z79.899 Other long term (current) drug therapy
CPT/HCPCS: 99281

== ENCOUNTER 2024-11-08 15:36 | Emergency (ER) | payer MEDICAID ==
[~2024-11-08] VITALS: Ht 162.6 cm; Wt 65.0 kg
[2024-11-08 15:37] VITALS: BP 106/84; PULSE 83; RESP 16; TEMP 36.8; O2SAT 100
== END 2024-11-08 18:17 | disposition left against medical advice (07) ==
LOC: ER 15:36
DX: M79.671 Pain in right foot (principal); I10 Essential (primary) hypertension; Z79.899 Other long term (current) drug therapy
CPT/HCPCS: 99283

== ENCOUNTER 2025-01-13 16:37 | Emergency (ER) | payer MEDICAID ==
[~2025-01-13] VITALS: Ht 165.1 cm; Wt 64.0 kg
[2025-01-13 16:39] VITALS: BP 135/80; PULSE 90; RESP 20; TEMP 37.1; O2SAT 97
[2025-01-13 17:26] LABS: BASOPHILS % 1.3 % (0.0-2.0); HEMATOCRIT. 37.9 % (36.0-48.0); HEMOGLOBIN. 12.3 g/dL (12.0-16.0); LYMPHOCYTES % 28.7 % (20.0-50.0); MEAN CORPUSCULAR HEMOGLOBIN 27.5 pg (28.0-32.0); MEAN CORPUSCULAR HGB CONC 32.4 g/dL (31.0-37.0); MEAN PLATELET VOLUME 7.9 fl (7.4-10.4); MONOCYTES % 6.8 % (2.0-8.0); NEUTROPHILS % 59.2 % (40.0-76.0); PLATELET 413 x1000/uL (130-400); RED BLOOD CELL COUNT 4.46 mill/uL (4.2-5.4); WHITE BLOOD COUNT 5.9 x1000/uL (4.5-11.0)
[2025-01-13 17:31] LABS: CHLORIDE 104 mEq/L (98-107); POTASSIUM 3.3 mEq/L (3.5-5.1); SODIUM 143 mEq/L (136-145)
[2025-01-13 17:32] LABS: CALCIUM 9.9 mg/dL (8.7-10.4); CARBON DIOXIDE 32 mEq/L (21-32)
[2025-01-13 17:37] LABS: CREATININE 0.9 mg/dL (0.6-1.0); GLUCOSE 72 mg/dL (70-105); UREA NITROGEN BLOOD 15 mg/dL (9-23)
== END 2025-01-13 18:56 | disposition home or self-care (01) ==
LOC: ER 16:37
DX: G89.29 Other chronic pain (principal); M79.18 Myalgia, other site; I10 Essential (primary) hypertension; Z79.899 Other long term (current) drug therapy
CPT/HCPCS: 36415; 80048; 85025; 99283

== ENCOUNTER 2025-05-11 16:18 | Emergency (ER) | payer MEDICAID ==
[~2025-05-11] VITALS: Ht 170.2 cm; Wt 68.0 kg
[2025-05-11 16:19] VITALS: BP 104/87; PULSE 90; RESP 18; TEMP 36.8; O2SAT 99
== END 2025-05-11 19:46 | disposition left against medical advice (07) ==
LOC: ER 16:18
DX: R53.1 Weakness (principal); I10 Essential (primary) hypertension; Z59.00 Homelessness unspecified; Z79.899 Other long term (current) drug therapy
CPT/HCPCS: 93005; 99283

== ENCOUNTER 2025-08-10 17:25 | Emergency (ER) | payer MEDICAID ==
[~2025-08-10] VITALS: Ht 162.6 cm; Wt 64.0 kg
[2025-08-10 17:26] VITALS: O2SAT 99
[2025-08-10] MEDS ORDERED: CLOT15CR5 TP (22:11)
[2025-08-10 23:00] VITALS: BP 112/69; PULSE 100; RESP 18; TEMP 36.6; O2SAT 98
== END 2025-08-10 23:10 | disposition home or self-care (01) ==
LOC: ER 17:25
DX: B35.3 Tinea pedis (principal); Z59.00 Homelessness unspecified; Z76.5 Malingerer [conscious simulation]; Z79.899 Other long term (current) drug therapy
CPT/HCPCS: 99283

== ENCOUNTER 2025-08-11 07:42 | Emergency (ER) | payer MEDICAID ==
[~2025-08-11] VITALS: Ht 160 cm; Wt 60.0 kg
[~2025-08-11 07:42] MED LIST changes: +CLOT15CR5 TP
[2025-08-11 07:43] VITALS: PULSE 77; RESP 16; O2SAT 99
[2025-08-11 07:57] VITALS: BP 187/159; TEMP 36.7; O2SAT 95
== END 2025-08-11 08:37 | disposition home or self-care (01) ==
LOC: ER 07:59
DX: M79.606 Pain in leg, unspecified (principal); Z59.00 Homelessness unspecified; Z79.899 Other long term (current) drug therapy
CPT/HCPCS: 99282

== ENCOUNTER 2025-08-16 22:59 | Emergency (ER) | payer MEDICAID ==
[~2025-08-16] VITALS: Ht 162.6 cm; Wt 55.0 kg
[2025-08-16 23:02] VITALS: BP 146/86; PULSE 89; RESP 16; TEMP 98.1; O2SAT 98
== END 2025-08-17 03:14 | disposition left against medical advice (07) ==
LOC: ER 22:59
DX: R10.9 Unspecified abdominal pain (principal)
CPT/HCPCS: 99281

== ENCOUNTER 2025-08-17 07:04 | Emergency (ER) | payer MEDICAID ==
[~2025-08-17] VITALS: Ht 157.5 cm; Wt 50.0 kg
[2025-08-17 07:24] VITALS: BP 146/93; TEMP 36.7; O2SAT 98
[2025-08-17 08:03] VITALS: PULSE 76; RESP 20; O2SAT 94
== END 2025-08-17 11:31 | disposition home or self-care (01) ==
LOC: ER 07:04
DX: M79.672 Pain in left foot (principal); M79.671 Pain in right foot
CPT/HCPCS: 99281